=== PATIENT | female | born 1990 | race Hispanic/Latino ===

== ENCOUNTER 2018-07-13 13:04 | Outpatient (CLI) | payer BC ==
--- NOTE | 2018-07-13 14:39 | ULT ---
PELVIC ULTRASOUND: 07/13/2018 HISTORY: Abnormal uterine and vaginal bleeding in a premenopausal female patient. TECHNIQUE: Multiple transabdominal and endovaginal sonographic images of the pelvis are obtained. FINDINGS: The uterus demonstrates a normal sonographic appearance with a homogeneous echotexture and measures 8 .8 cm x 4 cm x 4.6 cm. The endometrial stripe measures 1 cm in thickness, which is within normal ruiz its for the patient's age. No fluid or fluid collection is seen in the endometrial canal. The ovaries demonstrate a normal sonographic appearance bilaterally, with the right ovary measuring 2 cm x 2.3 cm x 1.8 cm and the left ovary measuring 1.8 cm x 2.3 cm x 2.2 cm. Doppler evaluation of e ach ovary demonstrates venous flow, with arterial flow documented in the left ovary. There is sugges tion of arterial flow within the right ovary, although this is difficult to definitely elicit on this exam. There is a trace amount of free fluid in the pelvis, which is likely physiologic in origin. A small nabothian cyst is present in the cervix. IMPRESSION: Normal appearing uterus and bilateral ovaries. POS: [facility]
== END 2018-07-13 13:05 | disposition home or self-care (01) ==
LOC: ULT 13:04
PROVIDERS: ATTEND Family Medicine
DX: N93.9 Abnormal uterine and vaginal bleeding, unspecified (principal)
CPT/HCPCS: 36415; 76856; 84439; 84443; 85025

== ENCOUNTER 2018-07-22 23:03 | Emergency (ER) | payer BC ==
[2018-07-22 23:30] LABS: Bilirubin Negative (Negative); Blood, Urine Large (Negative); Clarity TURBID (Clear); Glucose, Urine (Dipstick) Negative (Negative); Leukocyte Small (Negative); Nitrite Negative (Negative); Protein, Urine (Dipstick) Trace mg/dL (Neg-Trace); Urobilinogen 0.2 mg/dL (0.2-1.0)
[2018-07-22 23:31] LABS: Bacteria/HPF None Seen HPF (None Seen); Hyaline Casts/LPF 0-3 HYALINE CAST LPF (0-3 Hyaline); Pathc Cast-AUWi Flag 0.29 (0-2.49); Pregnancy Test - Urine (BHCG) Negative (Negative); Pregu Control Background? CLEAR/WHITE (CLR/WHITE); Pregu Control Bar Appear? YES (CONTROL BAR); RBC/HPF GREATER THAN 50-TNTC HPF (0-3)
[2018-07-22 23:35] LABS: #Eosinphils 0.1 thou/uL (0.0-0.7); #Lymphocytes 2.9 thou/uL (1.20-3.40); #Monocytes 0.5 thou/uL (0.11-0.59); #Neutrophils 12.9 thou/uL (1.40-6.50); %Basophils 0.3 % (0.0-1.0); %Eosinophils 0.9 % (0.0-10.0); %Lymphocytes 17.6 % (21.0-51.0); %Neutrophils 78.3 % (42.0-75.0); Hemoglobin 10.6 g/dL (12.0-16.0); Mean Corpuscular HGB CONC 35.4 g/dL (32.0-36.0); Mean Corpuscular Hemoglobin 30.4 pg (27.0-31.0); Mean Corpuscular Volume 85.9 fL (78.0-98.0); Mean Platelet Volume 6.7 fL (7.4-10.4); Platelet Count 379 thou/uL (130-400); RBC Distribution Width 12.6 % (11.5-14.5); Red Blood Cell (RBC) Count 3.48 mill/uL (4.20-5.40); White Blood Cell (WBC) Count 16.5 thou/uL (4.8-10.8)
[2018-07-22 23:55] LABS: ALT (SGPT) 52 U/L (8-55); AST (SGOT) 25 U/L (5-34); Albumin 4.5 g/dL (3.5-5.0); Alkaline Phosphatase 74 U/L (40-150); Anion Gap 16 mmol/L (10-20); BUN (Urea Nitrogen) 9 mg/dL (7.0-18.7); Bilirubin, Total 0.6 mg/dL (0.2-1.2); Calc. Creatinine Clearance 0 mL/min (70-130); Calcium 9.7 mg/dL (7.8-10.44); Carbon Dioxide 21 mmol/L (22-29); Chloride 105 mmol/L (98-107); Estimated GFR-MDRD Greater than 90; Globulin 3.3 g/dL (2.4-3.5); Glucose 118 mg/dL (70-105); Lipase 13 U/L (8-78); Potassium 3.5 mmol/L (3.5-5.1); Protein, Total 7.8 g/dL (6.0-8.3); Sodium 138 mmol/L (136-145)
--- NOTE | 2018-07-23 08:14 | ULT ---
PRELIMINARY REPORT/[facility]/EMERGENTY AFTER-HOURS PROCEDURE US Pelvis, Transvaginal US Duplex Artery and Vein of the Abdominal and/or Reproductive Organs, Complete EXAM DATE/TIME: 07/23/2018 12:27 AM CLINICAL HISTORY: 28 years old, female; Signs and symptoms; Other: Sab 1mo ago, continued vag bleeding, increased Today TECHNIQUE: Real-time transvaginal pelvic ultrasound with image documentation. Transvaginal imaging was used for better evaluation of the endometrium and adnexa. Real-time duplex ultrasound scan of the arterial and venous flow of the abdominal and/or reproductive organs with B-mode, color Doppler flow and spectral waveform analysis. Complete exam. COMPARISON: No relevant prior studies available. FINDINGS: Transvaginal pelvic ultrasound was performed. Duplex ultrasound scan with color Doppler flow and spec tral waveform analysis was also performed for evaluation of pelvic and ovarian blood flow and torsion . Uterus/cervix: Mild heterogeneous endometrial thickening with mild loculated fluid in the fundus. No myometrial mass. Right adnexa: No acute findings. No mass. Normal duplex of the ovary. No evidence of torsion. Left adnexa: No acute findings. No mass. Normal duplex of the ovary. No evidence of torsion. Free fluid: Trace. IMPRESSION: Mild endometrial thickening/fluid described above. Thank you for allowing us to participate in the care of your patient. Dictated and Authenticated by: Ron Bustillos MD 07/23/2018 1:03 AM Central Time ([place] & [place]) FINAL REPORT PELVIC SONOGRAM TRANSVAGINAL IMAGING WITH DUPLEX EVALUATION PERFORMED ON AN EMERGENCY BASIS: Date: 07/23/18 Time: 0034 hours HISTORY: Pelvic pain and bleeding. FINDINGS: Findings agree with the preliminary report by [facility]. Endometrium is thickened and contains a small j luis unt of fluid. A physiologic amount of free fluid within the pelvis. Good color and spectral Doppler of each ovary. POS: [facility]
== END 2018-07-23 01:41 | disposition home or self-care (01) ==
LOC: ERS 23:03
DX: N93.8 Other specified abnormal uterine and vaginal bleeding (principal); R11.2 Nausea with vomiting, unspecified; M62.838 Other muscle spasm
CPT/HCPCS: 36415; 76856; 80053; 81003; 81015; 81025; 83690; 85025; 87086; A4353

== ENCOUNTER 2018-08-11 22:14 | Emergency (ER) | payer BC ==
[2018-08-11 22:51] LABS: #Eosinphils 0.1 thou/uL (0.0-0.7); #Lymphocytes 1.9 thou/uL (1.20-3.40); #Monocytes 0.3 thou/uL (0.11-0.59); #Neutrophils 5.7 thou/uL (1.40-6.50); %Basophils 0.3 % (0.0-1.0); %Eosinophils 1.8 % (0.0-10.0); %Lymphocytes 22.9 % (21.0-51.0); %Neutrophils 70.9 % (42.0-75.0); Hemoglobin 9.7 g/dL (12.0-16.0); Mean Corpuscular HGB CONC 33.3 g/dL (32.0-36.0); Mean Corpuscular Hemoglobin 28.2 pg (27.0-31.0); Mean Corpuscular Volume 84.8 fL (78.0-98.0); Mean Platelet Volume 6.9 fL (7.4-10.4); Platelet Count 407 thou/uL (130-400); RBC Distribution Width 12.8 % (11.5-14.5); Red Blood Cell (RBC) Count 3.43 mill/uL (4.20-5.40); White Blood Cell (WBC) Count 8.1 thou/uL (4.8-10.8)
[2018-08-11 22:56] LABS: BHCG - Serum Negative (NEGATIVE); Pregs Control Background? CLEAR/WHITE (CLR/WHITE); Pregs Control Bar Appear? YES (CONTROL BAR)
[2018-08-11 23:21] LABS: Bilirubin Small (Negative); Blood, Urine Large (Negative); Glucose, Urine (Dipstick) Negative (Negative); Leukocyte Negative (Negative); Nitrite Negative (Negative); Protein, Urine (Dipstick) 100 mg/dL (Neg-Trace); Urobilinogen 0.2 mg/dL (0.2-1.0)
[2018-08-11 23:22] LABS: Bacteria/HPF Rare-Few HPF (None Seen); Clarity Cloudy (Clear); Hyaline Casts/LPF 0-3 HYALINE CAST LPF (0-3 Hyaline); RBC/HPF GREATER THAN 50-TNTC HPF (0-3); Specific Gravity, Urine 1.024 (1.002-1.036); Squamous Epithelial 0-3 HPF (0-3)
== END 2018-08-12 02:00 | disposition home or self-care (01) ==
LOC: ERS 22:14
DX: N93.8 Other specified abnormal uterine and vaginal bleeding (principal); D64.9 Anemia, unspecified; E28.2 Polycystic ovarian syndrome
CPT/HCPCS: 36415; 81003; 81015; 84703; 85025; 86850; 86900; 86901; 96360; 96361